=== PATIENT | male | born 1980 | race Caucasian/White ===

== ENCOUNTER 2018-03-20 14:59 | Emergency (ER) | payer BC ==
--- NOTE | 2018-03-20 15:12 | ER Report ---
History and Physical Time Seen By MD: 15:12 Hx. of Stated Complaint: patient cut left thumb on wood chisel HPI/ROS CHIEF COMPLAINT: Laceration HISTORY OF PRESENT ILLNESS: This is a 37-year-old male presents to the emergency department for laceration. Patient states that about 50 minutes prior to arrival he was using a fluid chisel on some tree and, he slipped and the chisel went through the distal aspect of his left thumb. It does involve a portion of the nail. Bleeding is controlled. CMS intact. Bleeding is controlled. No other complaints. No nausea vomiting. No fevers or chills. REVIEW OF SYSTEMS: Respiratory: No cough, no dyspnea. Cardiovascular: No chest pain, no palpitations. Gastrointestinal: No vomiting, no abdominal pain. Musculoskeletal: No back pain. Integument: As above. Allergies: Coded Allergies: No Known Drug Allergies (Unverified , 03/20/18) Home Meds Active Scripts Cephalexin 500 Mg Tab (KEFLEX 500 MG TAB) 500 Mg Tablet, 500 MG PO Q6H, #28 TAB 0 Refills Prov:KEYSHAWN MORELOS ACCOUNTANT CERTIFIED PUBLIC-BC 03/20/18 Past Medical/Surgical History The patient has no significant past medical or surgical history. Reviewed Nurses Notes: Yes Constitutional Vital Sign - Last 24 Hours 03/20/18 03/20/18 15:04 17:00 Temp 98.2 Pulse 72 82 Resp 16 16 B/P (MAP) 170/108 138/85 (102) Pulse Ox 96 95 O2 Delivery Room Air Room Air Physical Exam General Appearance: The patient is alert, has no immediate need for airway protection and no current signs of toxicity. Eyes: Pupils equal and round no injection. Respiratory: Chest is non tender, lungs are clear to auscultation. Cardiac: regular rate and rhythm. Gastrointestinal: Abdomen is soft and non tender, no masses, bowel sounds normal. Musculoskeletal: Neck: Neck is supple and non tender. Extremities have full range of motion and are non tender. Skin: 2.5; laceration to the distal aspect of the left thumb, CMS intact, good flexion and extension. DIFFERENTIAL DIAGNOSIS: After history and physical exam differential diagnosis was considered for laceration. Medical Decision Making [place] [facility] [place] : 1980 Visit[facility]Account:[id number] [facility] Examination: HAND COMPLETE LEFT Comparison: None. History: Thumb laceration. eval left thumb for foreign body Findings: Left thumb distal soft tissue laceration. No radiopaque foreign body. No fracture. Alignment and joint spaces are normal. IMPRESSION: 1. Left thumb distal soft tissue laceration. No radiopaque foreign body. 2. Otherwise negative left hand. Report Dictated By: Jose Miguel Matos MD at 03/20/2018 3:50 PM Report E-Signed By: Jose Miguel Matos MD at 03/20/2018 3:52 PM WSN:[id number] ED Course/Re-evaluation ED Course The patient was admitted to room. A history and physical were obtained. Differential diagnoses were considered. An x-ray of the hand did not reveal foreign body or no involvement of the bone. As the wound was rather extensive and deep and in close proximity to the bone the I did elect to treat as an open fracture, he did get 1 g of IM Rocephin. He was also started on Keflex. The wound was thoroughly irrigated. The wound was repaired as noted below. Patient tolerated very well. The wound was covered with bacitracin Kerlix, and a splint. Patient was instructed to follow-up with and/or establish with a primary care provider within the next 7-10 days for reevaluation and removal of the sutures. Patient expressed understanding, was discharged home. Procedure: Laceration repair. Verbal consent was obtained from the patient. The 2.5 cm laceration on the distal aspect of the left thumb was anesthetized in the usual fashion. The wound was scrubbed, draped and explored to its base with a gloved finger. There were no deep structures involved. No tendon injury was identified. The wound was repaired with 8, 5-0 Prolene simple interrupted sutures. The wound repair was complex, it did involve the fingernail.. The procedure was performed by myself. Decision to Disposition Date: Mar 20, 2018 Decision to Disposition Time: 16:32 Depart Departure Latest Vital Signs Vital Signs Date Time Temp Pulse Resp B/P (MAP) Pulse Ox O2 Delivery O2 Flow Rate FiO2 03/20/18 17:00 82 16 138/85 (102) 95 Room Air 03/20/18 15:04 98.2 Impression: Primary Impression: Laceration of thumb, left Condition: Improved Disposition: HOME OR SELF-CARE New Scripts Cephalexin 500 Mg Tab (KEFLEX 500 MG TAB) 500 Mg Tablet 500 MG PO Q6H, #28 TAB 0 Refills Prov: KEYSHAWN MORELOS 03/20/18 Patient Instructions: Acute Wound Care (ED), Finger Laceration (ED) Additional Instructions: Keep wound dry for 48 hours. Follow up with your primary care provider in the next 7-10 days to have sutures removed. Take the Keflex as prescribed. Although he will be on antibiotics, Monitor for signs of infection; redness, swelling, heat, discharge, increasing pain or red streaking. Take Tylenol or Ibuprofen as needed for pain. Return to the ER with any concerns. You may change dressing as needed. Problem Qualifiers Primary Impression: Laceration of thumb, left Encounter type: initial encounter Damage to nail status: with damage Foreign body presence: without foreign body Qualified Codes: S61.112A - Laceration without foreign body of left thumb with damage to nail, initial encounter KEYSHAWN MORELOS-EBER Mar 20, 2018 15:12
[2018-03-20] MEDS ORDERED: DIPHTH/TETANUS/ACEL. PERTUSSIS IM ONLY ONE (15:25)
[2018-03-20] MEDS ORDERED: CEPH500T7 PO (15:53)
[2018-03-20] MEDS ORDERED: LIDOCAINE 1% MDV 200 MG/20 ML INJ ONE (15:55)
[2018-03-20] MEDS ORDERED: cefTRIAXone 1 GM VIAL IM ONE (15:55)
--- NOTE | 2018-03-20 15:56 | RADIOLOGY IMAGING REPORT ---
[place] [facility] [place] Solomon Riojas : 1980 MR: [id number] V: [id number] EXAM DATE: ORDERING PHYSICIAN: KEYSHAWN MORELOS TECHNOLOGIST: Location: [facility] [place] Patient: Solomon Riojas : 1980 Visit/Account:[id number] Date of [place]: 03/20/2018 Examination: HAND COMPLETE LEFT Comparison: None. History: Thumb laceration. eval left thumb for foreign body Findings: Left thumb distal soft tissue laceration. No radiopaque foreign body. No fracture. Alignment and joint spaces are normal. IMPRESSION: 1. Left thumb distal soft tissue laceration. No radiopaque foreign body. 2. Otherwise negative left hand. Report Dictated By: Jose Miguel Matos MD at 03/20/2018 3:50 PM Report E-Signed By: Jose Miguel Matos MD at 03/20/2018 3:52 PM WSN:[id number]
[2018-03-20 17:00] VITALS: BP 138/85
== END 2018-03-20 17:10 | disposition home or self-care (01) ==
LOC: ER 15:18
DX: S61.112A Laceration without foreign body of left thumb with damage to nail, initial encounter (principal)
CPT/HCPCS: 12001; 73130; 90471; 90715; 96372; 99283; J0696; J2001